=== PATIENT | female | born 1945 | race Caucasian/White ===

== ENCOUNTER → 2021-05-11 | Day surgery (SDC) | payer MEDICARE, OTHER ==
[2021-05-09 15:11] VITALS: BMI 31.9
[~2021-05-11] MED LIST: BACITRACIN ZINC 500 UNIT/GM OINT 28.4 GM TUBE TOPICAL ONE; DEXAMETHASONE SOD PHOSPHATE 4 MG/ML 1 ML VIAL IV ONE; DEXAMETHASONE SOD PHOSPHATE 4 MG/ML 1 ML VIAL ONE; HYDROcodone/APAP 7.5-325MG 1 EACH TAB ONE; HYDROcodone/APAP 7.5-325MG 1 EACH TAB PO ONE; HYDROmorphone 0.5 MG/0.5 ML SYRINGE IVP PRN; LACTATED RINGERS 1,000 ML IV SCH; LIDOCAINE 2% (PF) 20 MG/ML 10 ML AMP SQ ONE; LIDOCAINE 2% INJ 20 MG/ML SQ ONE; MIDAZOLAM 2 MG/2 ML VIAL IV PRN; MIDAZOLAM 2 MG/2 ML VIAL IVP ONE; MIDAZOLAM 2 MG/2 ML VIAL ONE; ONDANSETRON 4 MG/2 ML VIAL IVP ONE; PROPOFOL 10 MG/ML 20 ML VIAL IV ONE; ROPIVACAINE 5 MG/ML 30 ML VIAL ONE
[2021-05-11 08:08] LABS: Glucose,Whole Blood 76 mg/dL (75-99)
[2021-05-11 08:27] LABS: Basophils # (A) 0.1 k/uL (0-0.2); Basophils % (A) 1 %; Eosinophils # (A) 0.3 k/uL (0-0.7); Eosinophils % (A) 4 %; HCT 38.9 % (34.0-46.0); HGB 12.9 gm/dL (11.4-16.0); Hypochromasia Slight; Lymphocytes # (A) 1.1 k/uL (1.0-4.8); Lymphocytes % (A) 15 %; MCH 29.8 pg (25.0-35.0); MCV 90.3 fL (80.0-100.0); Mean Platelet Volume 9.7; Monocytes # (A) 0.5 k/uL (0-1.0); Monocytes % (A) 6 %; Neutrophils # (A) 5.5 k/uL (1.3-7.7); Neutrophils % (A) 70 %; Platelet Count 198 k/uL (150-450); RBC 4.31 m/uL (3.80-5.40); RDW 15.7 % (11.5-15.5); WBC 7.8 k/uL (3.8-10.6)
[2021-05-11 08:49] LABS: Calcium 10.2 mg/dL (8.4-10.2); INR 0.9 (<1.2); Potassium 4.1 mmol/L (3.5-5.1)
--- NOTE | 2021-05-11 09:31 | P.ANPRN ---
Procedure Note - Anesthesia - Nerve Block Performed Right Popliteal Single Time Out Performed: Yes Date of Procedure: 05/11/21 Procedure Start Time: :15 Procedure Stop Time: : Location of Patient: PreOp Indication: Acute Post-Operative Pain, Requested by Surgeon Sedation Type: Sedate with meaningful contact maintained Preparation: Sterile Prep, Sterile Dressing Position: Left Lateral Catheter: None Needle Types: Facet Needle Gauge: 21 Ultrasound used to visualize needle placement: Yes Ultrasound used to observe medication spread: Yes Injectate: 0.5% Ropivacaine (see comment for volume) (30 ml + decadron 4 mg) Blood Aspirated: No Pain Paresthesia on Injection Noted: No Resistance on Injection: Normal Image Stored and Saved: Yes Events: Uneventful and Well Tolerated
[2021-05-11 09:43] LABS: Glucose,Whole Blood 66 mg/dL (75-99)
[2021-05-11 09:53] LABS: Glucose,Whole Blood 77 mg/dL (75-99)
--- NOTE | 2021-05-11 09:59 | P.PN ---
Subjective Progress Note Date: 05/11/21 Principal diagnosis: Osteomyelitis right third toe Patient is being seen in the preop area prior to surgery she has osteomyelitis of the right third toe she has consented for surgical intervention of the right third digit to remove infected bone with possible amputation Objective - Vital Signs Vital signs: Vital Signs Temp 98.0 F 05/11/21 07:46 Pulse 71 05/11/21 07:46 Resp 16 05/11/21 07:46 BP 126/61 05/11/21 07:46 Pulse Ox 96 05/11/21 07:46 Intake & Output 05/10/21 05/11/21 05/11/21 18:59 06:59 18:59 Weight 93.2 kg - Exam Patient has edematous right third toe with neurovascular status to the digit change patient's vital signs are stable Assessment and Plan Assessment: Osteomyelitis right third toe Plan: Exam we'll discussed with patient findings as well as treatment plan that being possible removal of infected tissue of the right third digit with possible ampu tation. We have discussed with patient thoroughly complications prognosis risk expectations we answered all patient's questions vascular ability received with the surgical plan.
--- NOTE | 2021-05-11 10:07 | P.OP ---
Date of Procedure: 05/11/21 Preoperative Diagnosis: Osteomyelitis right third toe Postoperative Diagnosis: Osteomyelitis right third toe Procedure(s) Performed: Partial amputation right third toe Anesthesia: local Surgeon: Efra Sosa Estimated Blood Loss (ml): 5 Pathology: none sent Condition: stable Disposition: same day Indications for Procedure: Osteomyelitis right third toe Operative Findings: Extensive osteomyelitis right third toe Description of Procedure: Patient was brought to the operating room from the preoperative holding and placed on the operative table in supine position. He was given sedation and an ankle was applied about the right ankle. Surgical time out was performed and the correct procedure as well as patient was identified. The right third toe was then anesthetized with 6 mL of 2% Xylocaine plain proximal to the meta tarsophalangeal joint. The right foot was then prepped and draped in usual aseptic manner duration the right lower extremity is accomplished via elevation and use of Emile wrap for 3 minutes after which time the ankle pneumatic tourniquet was inflated to 250 mmHg. Incision was then directed to the medial and dorsal aspect of the right third toe where a 3 cm linear longer tubing was excisional was made right from proximal to distal starting on the medial surface and extending onto the dorsal surface. Carried down through superficial deep fascia. The wound was then inspected and extensive necrotic as well as infected soft tissue and bone was found is point it was determined that the right third toe would not be salvageable and we proceeded with making and converting the incisions to a fishmouth incision medial and lateral. Down through superficial and deep fascia. We identified the base of the proximal phalanx and using sharp dissection the base of the proximal phalanx was removed and the distal portion of the digit was removed. Specimens were then identified and retained for pathological as well as biological culture studies. The wound was then copiously lavaged with sterile saline. The deep fascia as well as the tendons were reapproximated to each other extensor and flexor with 3-0 Vicryl simple interrupted sutures skin edges were with 4-0 nylon horizontal mattress and s imple interrupted sutures. Neck was deflated and adequate vascular return was noted to all areas the right foot. Foot was then dressed with bacitracin Telfa 4 x 4's and Kerlix. A 4 adjacent was used as well as a abdominal pad. Brought to recovery room from the R having tolerated procedure and anesthesia well. Patient was given a PICC line surgical shoe prescription for narco and postop instructions. Turned to clinic as instructed for follow-up procedure and anesthesia well.
[2021-05-11 10:43] LABS: Glucose,Whole Blood 136 mg/dL (75-99)
[2021-05-11 11:24] VITALS: RESP 18; TEMP 97.6
[2021-05-11 13:27] LABS: Glucose,Whole Blood 178 mg/dL (75-99)
[2021-05-11 14:50] VITALS: BP 118/56; PULSE 86
== END ==
LOC: OR 07:00
PROVIDERS: ATTEND Podiatrist
DX: M86.8X7 Other osteomyelitis, ankle and foot (principal); E11.22 Type 2 diabetes mellitus with diabetic chronic kidney disease; I12.9 Hypertensive chronic kidney disease with stage 1 through stage 4 chronic kidney disease, or unspecified chronic kidney disease; N18.9 Chronic kidney disease, unspecified; M85.80 Other specified disorders of bone density and structure, unspecified site; E78.5 Hyperlipidemia, unspecified; Z79.82 Long term (current) use of aspirin; Z79.4 Long term (current) use of insulin; Z79.899 Other long term (current) drug therapy; Z88.1 Allergy status to other antibiotic agents
CPT/HCPCS: 36573; 64445; 76942; 88305; 80048; 85025; 85610; 88311; 87070; 87205; 87075; 87102; 28124; J2001 ×2; J2250; J1100; J0690; J2405; J0696; J2795; J2704

== ENCOUNTER 2022-03-12 10:15 | Day surgery (SDC) | payer MEDICARE, OTHER ==
[2022-03-11 14:19] VITALS: BMI 32.5
[~2022-03-12 10:15] MED LIST changes: +AMPICILLIN-SULBACTAM 3 GM in SODIUM CHLORIDE 0.9% 100 ML IVPB ONE; -BACITRACIN ZINC 500 UNIT/GM OINT 28.4 GM TUBE TOPICAL ONE; -DEXAMETHASONE SOD PHOSPHATE 4 MG/ML 1 ML VIAL IV ONE; -DEXAMETHASONE SOD PHOSPHATE 4 MG/ML 1 ML VIAL ONE; -HYDROcodone/APAP 7.5-325MG 1 EACH TAB ONE; -HYDROcodone/APAP 7.5-325MG 1 EACH TAB PO ONE; -HYDROmorphone 0.5 MG/0.5 ML SYRINGE IVP PRN; -LACTATED RINGERS 1,000 ML IV SCH; -LIDOCAINE 2% (PF) 20 MG/ML 10 ML AMP SQ ONE; -LIDOCAINE 2% INJ 20 MG/ML SQ ONE; -MIDAZOLAM 2 MG/2 ML VIAL IV PRN; -MIDAZOLAM 2 MG/2 ML VIAL IVP ONE; -MIDAZOLAM 2 MG/2 ML VIAL ONE; -ONDANSETRON 4 MG/2 ML VIAL IVP ONE; -PROPOFOL 10 MG/ML 20 ML VIAL IV ONE; -ROPIVACAINE 5 MG/ML 30 ML VIAL ONE
[2022-03-12 11:00] VITALS: RESP 16; TEMP 98
[2022-03-12] MEDS: LIDOCAINE 1% INJ 10MG/ML (30 ML VIAL-PF) SQ ONE ×2 (12:27→12:30)
[2022-03-12 16:12] VITALS: BP 134/54; PULSE 81
--- NOTE | 2022-03-20 09:05 | IR ---
PICC LINE PLACEMENT: HISTORY: Infection requiring long-term antibiotic therapy PROCEDURE: Ultrasound and fluoroscopic guidance of PICC line placement. COMPLICATIONS: None ANESTHESIA: 1. 1% Lidocaine locally. FINDINGS/TECHNIQUE: The procedure was explained to the patient. The risks, complications, benefits and alternatives were discussed and any questions were answered. Informed consent was obtained. The patient was placed supine on the fluoroscopic table and prepped and draped in the usual sterile fash ion. Utilizing a 21 gauge needle and sonographic and fluoroscopic guidance, access in the left ceph alic vein was achieved and there is placement of a 0.018 guidewire. The vein is patent. A 4-F sheat h was placed over the guidewire. The guidewire and dilator were removed and a 4-F. PICC line was rochelle phan through the sheath with the tip at the level of the SVC. The sheath was removed, the catheter wa s flushed and sutured into position. The patient was stable throughout the procedure and remained st able upon discharge from the Department of Radiology. The vein puncture was patent under ultrasound. A best scale image was obtained to document patency of the vein punctured. All elements of the maximal barrier technique were utilized. FLUOROSCOPY TIME: 0.1 minutes and one images IMPRESSION: Successful PICC line placement under ultrasound and fluoroscopic guidance.
== END 2022-03-12 14:30 | disposition home or self-care (01) ==
LOC: CATHCVL 10:15
PROVIDERS: ATTEND Radiology Diagnostic Radiology
DX: M86.8X6 Other osteomyelitis, lower leg (principal); M19.90 Unspecified osteoarthritis, unspecified site; E11.40 Type 2 diabetes mellitus with diabetic neuropathy, unspecified
CPT/HCPCS: 36573; C1751; C1769; J2001; J0295